=== PATIENT | female | born 1970 | race Caucasian/White ===

== ENCOUNTER → 2016-12-10 | Outpatient (CLI) | payer OTHER ==
--- NOTE | 2016-12-12 07:42 | MM ---
Reason for exam: clinical finding. History: Patient is nulliparous. Family history of breast cancer in maternal aunt at age 50 and breast cancer in maternal grandmother at age 50. Benign cyst aspiration of the left breast. Indicated problem(s): pain in the left breast. Physical Findings: Nurse did not find any significant physical abnormalities on exam. MG Diagnostic Mammo w CAD ARI Bilateral CC and MLO view(s) were taken. 5mm nodule left upper outer quadrant, 7cm from nipple. These results were verbally communicated with the patient and result sheet given to the patient on 12/10/16. ASSESSMENT: Probably benign, BI-RAD 3 RECOMMENDATION: Follow-up diagnostic mammogram of the left breast in 6 months. Manage patient on a clinical basis with regard to pain.
== END | disposition home or self-care (01) ==
LOC: RADMAMWWP 14:30
PROVIDERS: ATTEND Family Medicine
DX: N64.4 Mastodynia (principal); Z80.3 Family history of malignant neoplasm of breast

== ENCOUNTER → 2016-12-10 | Outpatient (CLI) | payer OTHER ==
--- NOTE | 2016-12-10 18:12 | MR ---
EXAMINATION TYPE: MR cervical spine wo/w con DATE OF EXAM: 12/10/2016 5:04 PM COMPARISON: Plain film 23 October 2016 HISTORY: Severe neck pain TECHNIQUE: Multiplanar, multisequence images of the cervical spine were acquired utilizing 15 mL intravenous Mul tiHance gadolinium contrast. Diffusion weighted imaging was performed. C2-C3: No evidence for degenerative disc disease. No disc bulge/herniation or protrusion. No Canal stenosis. Foramina are patent bilaterally. C3-C4: Listhesis grade 1 and C3-4 contributes to cause foraminal encroachment greater on the right, t here is lateral extension of endplate disc complex causing some anterolateral mass effect on the thec al sac. There is some associated facet arthropathy suspected C4-C5: Central posterior disc herniation causes anterior mass effect on the thecal sac. Lateral exten arya of endplate disc complex results in some left-sided foraminal encroachment. C5-C6: Small central posterior disc herniation causes anterior mass effect on the thecal sac. Lateral extension of endplate disc complex results in some left-sided foraminal encroachment. No significant central stenosis. C6-C7: Posterior circumferential extension of endplate disc complex causes contact of the anterior ce rvical cord. Bilateral foraminal encroachment is present. Mild to moderate central stenosis. Minimal retrolisthesis C6-7 grade 1. C7-T1: No evidence for degenerative disc disease. No disc bulge/herniation or protrusion. No Canal stenosis. Foramina are patent bilaterally. Cervical segments are intact. There is normal alignment. Cervical spinal cord is of normal signal. Craniovertebral junction relationships are within normal limits. No abnormal enhancement following contrast administration. IMPRESSION: Multilevel foraminal encroachment, degenerative disc disease as described.
== END | disposition home or self-care (01) ==
LOC: RADMRIMAIN 15:25
PROVIDERS: ATTEND Nurse Practitioner Family
DX: M50.30 Other cervical disc degeneration, unspecified cervical region (principal)
CPT/HCPCS: 72156; A9577

== ENCOUNTER 2017-02-09 11:19 | Inpatient (IN) | payer MEDICAID, OTHER ==
--- NOTE | 2017-02-09 11:45 | ED ---
General Adult HPI - General Stated complaint: Mental Health Time Seen by Provider: 02/09/17 11:28 Source: patient, RN notes reviewed Mode of arrival: EMS Limitations: altered mental status - History of Present Illness Initial comments: Patient is a 46-year-old female presenting by ambulance for what patient reports as anxiety. EMS reports that a neighbor called with concerns of change in behavior. Reportedly is on his way up. Patient admits to being depressed however denies suicidal or homicidal thoughts. Patient denies hallucinations. Patient denies any specific physical complaints. Patient is not forthcoming with information. Patient feels she is being recorded. Patient requests a client relationship consultant. Patient does not trust that I am a physician. - Related Data Home Medications Medication Instructions Recorded Confirmed Ibuprofen [Motrin] 800 mg PO TID PRN 11/19/16 02/09/17 Previous Rx's Medication Instructions Recorded PARoxetine HCL [Paxil] 10 mg PO DAILY #30 tab 11/20/16 Allergies Allergy/AdvReac Type Severity Reaction Status Date / Time No Known Allergies Allergy Verified 02/09/17 11:46 Review of Systems ROS Statement: Those systems with pertinent positive or pertinent negative responses have been documented in the HPI. ROS Other: All systems not noted in ROS Statement are negative. Constitutional: Denies: fever Eyes: Denies: eye pain ENT: Denies: ear pain Respiratory: Denies: cough Cardiovascular: Denies: chest pain Endocrine: Denies: fatigue Gastrointestinal: Denies: abdominal pain Genitourinary: Denies: dysuria Musculoskeletal: Denies: back pain Skin: Denies: rash Neurological: Denies: headache Psychiatric: Reports: anxiety, depression Past Medical History Past Medical History: Unable to Obtain Additional Past Medical History / Comment(s): chronic back and neck pain, starting menopause been having depression/anxiety panic attacks real bad last 6 months, since back surgery been having problems with incontinence urinary, lump in breast right breast benign History of Any Multi-Drug Resistant Organisms: None Reported Past Surgical History: Back Surgery, Cholecystectomy Additional Past Surgical History / Comment(s): left hand surgery Past Anesthesia/Blood Transfusion Reactions: No Reported Reaction Past Psychological History: Anxiety, Depression Smoking Status: Current every day smoker Past Alcohol Use History: Occasional Past Drug Use History: None Reported - Past Family History Father Family Medical History: COPD General Exam - General Exam Comments Initial Comments: Upon initial evaluation patient refuses to allow physical exam. General appearance: alert, in no apparent distress Head exam: Present: atraumatic Eye exam: Present: normal appearance Neck exam: Present: normal inspection Respiratory exam: Present: normal lung sounds bilaterally Cardiovascular Exam: Present: regular rate, normal rhythm Extremities exam: Present: normal inspection Neurological exam: Present: alert Psychiatric exam: Present: depressed, anxious Skin exam: Present: normal color Course - Reevaluation(s) Reevaluation #1: 02/09/17 12:58 Patient remains anxious however is agreeable to further assessment now that is present. Physical exam completed. Patient is medically clear. Medical Decision Making - Medical Decision Making Patient was seen by mental health services, who will admit. Disposition Clinical Impression: Depression Disposition: TRANSFER TO PSYCH HOSP/UNIT
[2017-02-09 16:00] VITALS: BMI 28.7
[2017-02-09] MEDS ORDERED: MAG HYDROX/AL HYDROX/SIMETH 30 ML CUP PO PRN (16:19)
[2017-02-09] MEDS ORDERED: MAGNESIUM HYDROXIDE 2,400 MG/10 ML CUP PO PRN (16:19)
[2017-02-09] MEDS ORDERED: ZIPRASIDONE 20 MG VIAL IM PRN (16:19)
[2017-02-09] MEDS ORDERED: ACETAMINOPHEN TAB 325 MG TAB PO PRN (16:19)
[2017-02-09] MEDS ORDERED: LORazepam 1 MG TAB PO PRN (16:29)
[2017-02-09] MEDS ORDERED: LORazepam 2 MG/ML SYRINGE IM PRN (16:29)
[2017-02-09] MEDS: IBUPROFEN 800 MG TAB PO PRN (21:17)
[2017-02-10 10:51] LABS: Basophils % (A) 1 %; CH 32.6; CHCM 33.6; Eosinophils # (A) 0.1 k/uL (0-0.7); Eosinophils % (A) 1 %; HDW 2.27; HGB 13.2 gm/dL (11.4-16.0); Luc # (Auto) 0.14; Luc % (Auto) 3; Lymphocytes # (A) 1.2 k/uL (1.0-4.8); Lymphocytes % (A) 22 %; MCH 31.3 pg (25.0-35.0); MCHC 32.1 g/dL (31.0-37.0); MCV 97.6 fL (80.0-100.0); Mean Platelet Volume 7.9; Monocytes # (A) 0.3 k/uL (0-1.0); Monocytes % (A) 6 %; Neutrophils # (A) 3.7 k/uL (1.3-7.7); Neutrophils % (A) 68 %; RDW 13.1 % (11.5-15.5); WBC 5.5 k/uL (3.8-10.6); WBC (Perox) 6.06
[2017-02-10 11:00] LABS: ALT 35 U/L (9-52); AST 39 U/L (14-36); Alkaline Phosphatase 63 U/L (38-126); Anion Gap 8 mmol/L; Bilirubin, Delta 0.1 mg/dL (0.0-0.2); Blood Urea Nitrogen 12 mg/dL (7-17); Calcium 8.7 mg/dL (8.4-10.2); Carbon Dioxide 25 mmol/L (22-30); Chloride 106 mmol/L (98-107); Glucose 96 mg/dL (74-99); Non-African American GFR(MDRD) >60 (>60 ml/min/1.73 sqM); Sodium 139 mmol/L (137-145); Total Bilirubin 1.1 mg/dL (0.2-1.3); Total Protein 6.5 g/dL (6.3-8.2)
[2017-02-10 11:09] LABS: Potassium 3.8 mmol/L (3.5-5.1)
[2017-02-10] MEDS: IBUPROFEN 800 MG TAB PO PRN (12:54)
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
[2017-02-10] MEDS: ARIPiprazole 5 MG TAB PO SCH (16:51)
[2017-02-10] MEDS: DULoxetine HCL 20 MG CAPSULE.DR PO SCH (16:52)
--- NOTE | 2017-02-10 17:53 | CONS ---
DATE OF CONSULTATION: CHIEF COMPLAINT: Anxiety and depression. HISTORY OF PRESENT ILLNESS: This is a 46-year-old female who presented to the emergency department for psychiatric evaluation. The patient reports worsening anxiety and depression. Her neighbor called with concern about her behavior. Patient is denying suicidal or homicidal thoughts. The patient is denying chest pain, shortness breath, nausea, vomiting, abdominal pain, dizziness, lightheadedness, or blurry vision. ALLERGIES: No known drug allergies. PAST MEDICAL AND SURGICAL HISTORY: 1. Chronic back pain, status post laminectomy. 2. Chronic neck pain. HOME MEDICATIONS: Motrin 800 as needed. SOCIAL HISTORY: Patient smokes cigars here and there. Denied alcohol or drug abuse. FAMILY HISTORY: Father of lung problem related to COPD. Mother with unknown history. PHYSICAL EXAMINATION: VITAL SIGNS: Reviewed and stable. GENERAL: In her stated age, no acute distress. HEENT: Atraumatic, normocephalic. PERRLA. NECK: Supple, no masses. No thyromegaly. LUNGS: Clear to auscultation bilaterally. HEART: S1, S2. ABDOMEN: Soft, no tenderness. Positive bowel sounds. No guarding or rebound. EXTREMITIES: Lower extremity no edema. SKIN: No new rash. PSYCH: Alert, and oriented x3. Relaxed mood and affect. NEURO: No focal deficit. IMAGING AND LABS: CBC entirely normal. Chem-7 entirely normal. Liver function tests, AST slightly elevated at 39 but normal otherwise. ASSESSMENT AND PLAN: 1. Acute depression with anxiety, per your management. 2. Tobacco dependency. We will consult patient regarding smoking cessation. 3. Chronic back pain and neck pain. We will continue with Motrin 800 as needed.
[2017-02-11] MEDS: DULoxetine HCL 20 MG CAPSULE.DR PO SCH (08:52)
[2017-02-11] MEDS: ARIPiprazole 5 MG TAB PO SCH (08:52)
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
[2017-02-12 05:39] VITALS: BP 113/63; PULSE 80; RESP 16; TEMP 98.7
[2017-02-12] MEDS: ARIPiprazole 5 MG TAB PO SCH (08:41)
[2017-02-12] MEDS: DULoxetine HCL 20 MG CAPSULE.DR PO SCH (08:41)
[2017-02-12] MEDS: IBUPROFEN 800 MG TAB PO PRN (08:42)
[2017-02-12 10:28] LABS: Appearance,Urine Cloudy (Clear); Bilirubin,Urine Negative (Negative); Glucose,Urine (UA) Negative (Negative); Ketones,Urine 1+ (Negative); Leukocyte Esterase,Urine Negative (Negative); Mucus,Urine Rare /hpf; Nitrite,Urine Negative (Negative); PH, Urine 5.5 (5.0-8.0); Particle Count 3533; Protein,Urine Trace (Negative); Specific Gravity,Urine 1.028 (1.001-1.035); Squamous Epithelial Cell,Urine 6 /hpf (0-4); UA Billing (MACRO vs. MICRO) MICRO; WBC,Urine 2 /hpf (0-5)
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
== END 2017-02-12 14:21 | disposition home or self-care (01) | DRG 882 ==
LOC: SUPCPDRO 11:19 → EC 11:19 → 3MHU 15:18
PROVIDERS: ADMIT Psychiatry & Neurology Psychiatry; ATTEND Psychiatry & Neurology Psychiatry
DX: F43.25 Adjustment disorder with mixed disturbance of emotions and conduct (principal); F31.9 Bipolar disorder, unspecified; F29 Unspecified psychosis not due to a substance or known physiological condition; F17.290 Nicotine dependence, other tobacco product, uncomplicated; F41.0 Panic disorder [episodic paroxysmal anxiety]; F41.8 Other specified anxiety disorders; Z62.810 Personal history of physical and sexual abuse in childhood; Z82.5 Family history of asthma and other chronic lower respiratory diseases; G89.29 Other chronic pain; M54.2 Cervicalgia; M54.9 Dorsalgia, unspecified
CPT/HCPCS: 80053; 80306; 81001; 81025; 82075; 82248; 84443; 85025; 93005; 99285